=== PATIENT | male | born 1985 | race Caucasian/White ===

== ENCOUNTER 2022-02-22 15:44 | Outpatient (REF) | payer BC, SELFPAY | END 2022-02-22 15:45 | disposition home or self-care (01) | LOC: LBN 15:44 | PROVIDERS: Visit Provider Nurse Practitioner Family | DX: J02.9 Acute pharyngitis, unspecified (principal); L98.9 Disorder of the skin and subcutaneous tissue, unspecified | CPT/HCPCS: 87077; 87070; 87186; 87205 ==

== ENCOUNTER 2022-03-08 16:08 | Outpatient (REF) | payer BC, SELFPAY | END 2022-03-08 16:09 | disposition home or self-care (01) | LOC: LBN 16:08 | PROVIDERS: Visit Provider Nurse Practitioner Family | DX: J02.9 Acute pharyngitis, unspecified (principal) | CPT/HCPCS: 87070 ==

== ENCOUNTER 2023-03-21 12:44 | Emergency (ER) | payer MEDICAID, SELFPAY ==
[2023-03-21 12:46] VITALS: BP 150/89; PULSE 99; RESP 22; TEMP 37.2; O2SAT 100
--- NOTE | 2023-03-21 13:10 | W.ED.GENAD ---
Discharge Plan Disposition Patient Disposition: Home Condition: Good Discharge Details Clinical Impression: Withdrawal syndrome Primary Care Provider: Unknown,Unknown ED Provider: Maryjo Dooley Home Meds and New Rx's Prescriptions: New naloxone [Narcan] 4 mg/actuation spray,non-aerosol 4 mg intranasal Q2M PRNQty: 2 0RF Rx Instructions: spray 1 dose into ONE nostril; alternate nostrils w each dose until help arrives No Action mupirocin 2 % ointment 1 applic topical BID Qty: 22 0RF Rx Instructions: apply 2x daily to wounds x 10 day and as needed penicillin V potassium 500 mg tablet 500 mg PO BID Qty: 20 0RF Rx Instructions: Take 1 tab every 12 hours x 10 days Discharge Instructions Instructions: Buprenorphine/Naloxone (Into the mouth), Narcotic Withdrawal (ED), Narcotic Use Disorder (ED) Additional Instructions: 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 A prescription for Narcan has been sent to your pharmacy- make sure the people around you know how to use it since you will not be able to give it to yourself if you need it. A referral has been sent to [facility]- call them first thing in the morning tomorrow. Return to the emergency department for new or worsening symptoms. Medical Decision Making 37yo M with opiate use disorder presenting requesting medication assisted treatment. History from patient and mother at bedside. Mother has been trying to find a program for him, [employer], etc, but can't get in for at least two weeks. Patient reports he usses street fentanyl, last yesterday morning. Two weeks ago was prescribed short course of suboxone however did not start it; after he picked up the prescription he left it in his car which was then impounded. Neither he nor his mother at bedside have been able to gain access to the vehicle. Aside from this he has never been on MAT before. Feels like he is withdrawing. Screening labs and urine ordered. Initial COWS 11. Discussed suboxone imitation with patient and mother at bedside including importance of accuracy of last usage given risks of precipitating worsening withdrawal. He again affirms last usage >24 hours ago. Given 2mg suboxone film. On reassessment COWS increased, patient more uncomfortable, irritable. Would not do further treatment here today. He did speak with a high school assistant football coach with plan for daily check ins, [facility] referral sent, and information sent to [facility]. Narcan prescribed and usage reviewed with mother and patient; he states he does already have some at home as well Discharge instructions verbally reviewed with patient and mother at bedside; he declined to wait for printed instructions. Discharged home, discharge instructions and return precautions were reviewed with patient who verbalized understanding. All questions were answered and he is in agreement with the plan. Lab Data Lab results reviewed: Yes I reviewed the patient's lab results. Labs: Laboratory Tests Range/Units 03/21/23 13:14 WBC (4.4-10.8) 10^3/uL 8.63 RBC (4.36-5.78) 10^6/uL 5.57 Hgb (13.5-17.5) g/dL 16.2 Hct (40.0-50.0) % 46.2 MCV (80-95) fL 83 MCH (27.0-33.0) pg 29.1 MCHC (32.0-36.0) % 35.1 RDW (11.8-14.1) % 11.9 Plt Count (130-400) 10^3/uL 282 MPV (8.0-11.0) fL 9.0 Immature Gran % 0.5 Neutrophils % 82.8 Lymphocytes % 11.9 Monocytes % 4.3 Eosinophils % 0.2 Basophils % 0.3 Nucleated RBC % (0.0-0.3) % 0.0 Absolute Neutrophils (1.2-6.7) 10^3/uL 7.14 H Absolute Lymphocytes (1.2-3.4) 10^3/uL 1.03 L Absolute Monocytes (0.1-0.8) 10^3/uL 0.37 Absolute Eosinophils (0.0-0.7) 10^3/uL 0.02 Absolute Basophils (0.0-0.2) 10^3/uL 0.03 Sodium (136-145) mmol/L 139 Potassium (3.5-5.1) mmol/L 3.6 Chloride (98-107) mmol/L 102 Carbon Dioxide (21.0-32.0) mmol/L 25.8 Anion Gap (3-11) mmol/L 11.2 H BUN (7-18) mg/dL 12 Creatinine (0.70-1.30) mg/dL 0.8 Est GFR (CKD-EPI 2020) (mL/min/1.73m2) 118.36 Glucose (74-106) mg/dL 113 H Calcium (8.5-10.1) mg/dL 9.9 Total Bilirubin (0.2-1.0) mg/dL 0.5 AST (15-37) U/L 13 L ALT (16-63) U/L 18 Alkaline Phosphatase (46-116) U/L 105 Total Protein (6.4-8.2) g/dL 7.8 Albumin (3.4-5.0) g/dL 4.2 HPI General Mode of arrival: ambulatory. Date/Time Provider Initiated Documentation: 03/21/23 12:55. Limitations to Documentation: no limitations. Information obtained by: patient and family. HPI Narrative: 37yo M with opiate use disorder presenting requesting medication assisted treatment. Uses street fentanyl, last yesterday. Two weeks ago was prescribed short course of suboxone however did not start it; after he picked up the prescription he left it in his car which was then impounded. Neither he nor his mother at bedside have been able to gain access to the vehicle. Aside from this he has never been on MAT before. Currently feels like he is withdrawing, nauseated, tremulous, headache, generally unwell. Has been trying to get into a program however earliest he has been able to identify is two weeks from now. He is otherwise in his usual state of health. Related Data Home Medications Medication Instructions Recorded Confirmed penicillin V potassium 500 mg 500 mg PO BID #20 tabs 02/22/22 02/22/22 tablet mupirocin 2 % topical ointment 1 applic topical BID #22 grams 03/08/22 03/08/22 naloxone 4 mg/actuation nasal 4 mg intranasal Q2M PRN #2 ea 03/21/23 spray (Narcan) Previous Rx's Medication Instructions Recorded penicillin V potassium 500 mg 500 mg PO BID #20 tabs 02/22/22 tablet mupirocin 2 % topical ointment 1 applic topical BID #22 grams 03/08/22 naloxone 4 mg/actuation nasal 4 mg intranasal Q2M PRN #2 ea 03/21/23 spray (Narcan) Allergies Allergy/AdvReac Type Severity Reaction Status Date / Time No Known Allergies Allergy Unverified 03/08/22 13:51 General Stated Complaint: DrugWithdr/MAT GLADIS: 3 Review of Systems Narrative: see HPI PFSH All Active Problems (Updated 03/21/23 @ 14:04 by Maryjo Dooley MD) Withdrawal syndrome (Acute) Social History Smoking risk assessment performed?: No Alcohol Intake: current Alcohol Intake frequency: holidays/special occasions only Alcohol type: beer Drug use: Daily Substance use type: other Details: smokes 1 bundle fentanyl daily- last use on saturday Do you feel safe in your relationship?: Yes Exam Narrative Exam Narrative: General: Alert Head: Normocephalic, atraumatic Neck: Trachea midline, ?Neck supple. Cardiac: ?RRR, no murmurs appreciated Resp: No respiratory distress. CTAB. Abd: ?Soft, non-distended, nontender : ?No suprapubic tenderness. Extremities: ?No deformities.? No peripheral edema. Neurologic: GCS 15. ? Moves all extremities freely against gravity Course Vital Signs Vital signs: Vital Signs Temperature 37.2 C 03/21/23 12:46 Pulse 99 H 03/21/23 12:46 Respiratory Rate 22 03/21/23 12:46 Blood Pressure 150/89 H 03/21/23 12:46 Pulse Oximetry 100 03/21/23 12:46 Temperature 37.2 C 03/21/23 12:46 Temperature Source Temporal Artery Scan 03/21/23 12:46 Pulse 99 H 03/21/23 12:46 Respiratory Rate 22 03/21/23 12:46 Blood Pressure 150/89 H 03/21/23 12:46 Blood Pressure Position Sitting 03/21/23 12:46 Pulse Oximetry 100 03/21/23 12:46 Oxygen Delivery Method Room Air 03/21/23 12:46 Oxygen Flow Rate 0 03/21/23 12:46 Pain Level 8 03/21/23 12:46
[2023-03-21 13:12] VITALS: BP 132/79; PULSE 86; RESP 18; O2SAT 100
[2023-03-21 13:22] LABS: Abs Immature Grans 0.04 10^3/uL (0.0-0.06); Absolute Basophil Count 0.03 10^3/uL (0.0-0.2); Absolute Eosinophil Count 0.02 10^3/uL (0.0-0.7); Absolute Lymphocyte Count 1.03 10^3/uL (1.2-3.4); Absolute Monocyte Count 0.37 10^3/uL (0.1-0.8); Absolute Neutrophil Count 7.14 10^3/uL (1.2-6.7); Basophils % 0.3; Eosinophils % 0.2; HCT 46.2 % (40.0-50.0); HGB 16.2 g/dL (13.5-17.5); Immature Grans % 0.5; Lymphocytes % 11.9; MCH 29.1 pg (27.0-33.0); MCHC 35.1 % (32.0-36.0); MCV 83 fL (80-95); Monocytes % 4.3; Neutrophils % 82.8; Platelet Count 282 10^3/uL (130-400); RBC 5.57 10^6/uL (4.36-5.78); RDW 11.9 % (11.8-14.1); RDW-SD 35.8 fL; WBC 8.63 10^3/uL (4.4-10.8)
[2023-03-21 13:37] LABS: ALT 18 U/L (16-63); AST 13 U/L (15-37); Albumin 4.2 g/dL (3.4-5.0); Alkaline Phosphatase 105 U/L (46-116); Anion Gap 11.2 mmol/L (3-11); BUN 12 mg/dL (7-18); Bilirubin, Total 0.5 mg/dL (0.2-1.0); CO2 25.8 mmol/L (21.0-32.0); CREATININE 0.8 mg/dL (0.70-1.30); Calcium 9.9 mg/dL (8.5-10.1); Chloride 102 mmol/L (98-107); Estimated GFR 118.36 (mL/min/1.73m2); Glucose 113 mg/dL (74-106); Potassium 3.6 mmol/L (3.5-5.1); Sodium 139 mmol/L (136-145); Total Protein 7.8 g/dL (6.4-8.2)
[2023-03-21] MEDS: Buprenorphine/Naloxone 2 mg/0.5 mg FILM 1 EACH SL (13:37)
[2023-03-21 14:27] VITALS: BP 144/90; PULSE 98; RESP 18; O2SAT 97
[2023-03-21 14:52] LABS: *AMPHETAMINES SCREEN URINE Negative (Negative); *BARBITURATES SCREEN URINE Negative (Negative); *BENZODIAZEPINES SCREEN URINE Negative (Negative); Cannabinoids THC Positive (Negative); Cocaine Screen,Urine Positive (Negative); METHADONE URINE SCREEN Negative (Negative); OPIATES URINE SCREEN Negative (Negative)
[2023-03-21 14:54] LABS: Tricyclic Antidepressants Negative (Negative)
--- NOTE | 2023-03-21 15:18 | NUR.NOTE ---
Referral faxed to [facility] with signed transition of care form, facesheet and provider note. Nursing Note:
[2023-03-21 22:55] LABS: Hepatitis C Ab w Rflx HCV PCR Negative (Negative)
[2023-03-21 22:57] LABS: Hep B Core Antibody Negative (Negative)
--- NOTE | 2023-03-25 13:05 | NUR.NOTE ---
Mother came in today and picked up cap. Nursing Note:
== END 2023-03-21 14:45 | disposition home or self-care (01) ==
PROVIDERS: Emergency Provider Student in an Organized Health Care Education/Training Program
DX: F11.13 Opioid abuse with withdrawal (principal)
CPT/HCPCS: 80053; 80307; 86704; 86803; 99283; 85025; 99282

== ENCOUNTER 2023-05-14 18:29 | Outpatient (REF) | payer MEDICAID, SELFPAY | END 2023-05-14 18:30 | disposition home or self-care (01) | LOC: LBN 18:29 | PROVIDERS: Visit Provider Physician Assistant | DX: L98.8 Other specified disorders of the skin and subcutaneous tissue (principal) | CPT/HCPCS: 87077; 87070; 87186; 87205 ==

== ENCOUNTER 2024-02-25 17:26 | Emergency (ER) | payer MEDICAID, SELFPAY ==
[2024-02-25 17:33] VITALS: BP 136/86; PULSE 92; RESP 15; TEMP 36.5; O2SAT 95
--- NOTE | 2024-02-25 17:45 | DI.RAD_ITS ---
Exam(s) XR HAND RT COMPLETE EXAM: XR HAND RT COMPLETE CLINICAL HISTORY: Thumb swelling, infection. TECHNIQUE: 2D digital imaging was performed of the right hand. Three images were obtained. AP, late ral and oblique views were obtained. COMPARISON: There are no priors for comparison. FINDINGS: BONES: No acute fracture is present. No bony destructive lesion is seen. JOINTS: No dislocation present. SOFT TISSUE: There is soft tissue swelling of the thumb. No soft tissue gas is seen. IMPRESSION: Soft tissue swelling of the thumb. No soft tissue gas is present. No radiographic evidence to sugge st osteomyelitis is seen. DATA REPOSITORY: RADIATION DOSE DELIVERED:
--- NOTE | 2024-02-25 17:55 | W.ED.GENAD ---
Discharge Plan Disposition Patient Disposition: Home Condition: Stable Discharge Details Clinical Impression: Felon of finger of right hand Primary Care Provider: Unknown,Unknown ED Provider: Cnadice Meneses Home Meds and New Rx's Prescriptions: New sulfamethoxazole-trimethoprim [Bactrim DS] 800-160 mg tablet 1 tab PO BID 10 Days Qty: 20 0RF cephalexin 500 mg tablet 500 mg PO BID 10 Days Qty: 20 0RF No Action naloxone [Narcan] 4 mg/actuation spray,non-aerosol 4 mg intranasal Q2M PRNQty: 2 0RF Rx Instructions: spray 1 dose into ONE nostril; alternate nostrils w each dose until help arrives Discharge Instructions Instructions: Cellulitis (Skin Infection), Adult ED Additional Instructions: Please take both antibiotics twice daily for the next 10 days. Please take them with yogurt or a probiotic. You have something called a felon of your thumb. This is an infection of the skin. Please have it rechecked either here or your primary care doctor in 3 days or return sooner if it gets any worse, if you have any more red streaks up your arm, fever or chills or concerns. Please take Tylenol or Ibuprofen with food every 4-6 hours as needed for pain and swelling. Wash with soap and water daily, keep clean and dry. You may elevate it above the level of your heart when sitting or lying down. Keep it covered when you are out and about. It should start improving after approximately 3 days of the antibiotics. Follow up with primary care provider in 3-5 days. Return to ED sooner if any worsening or concerns. Referrals: [facility] [Provider Group] [facility] [Provider Group] [facility] General Mode of arrival: ambulatory. Date/Time Provider Initiated Documentation: 02/25/24 17:38. Limitations to Documentation: no limitations. Information obtained by: patient, RN notes reviewed and old records reviewed. HPI Narrative: 38-year-old male presents to the ER with a chief complaint else red swollen right thumb which she reports has been getting worse over the last few days. Patient has severely swollen thumb he has unable to bend or extend his joints, he does have some yellow discharge noted to the medial aspect distally. He also has some erythema kind extending up into his wrist on the medial side, he denies any fever or chills. Denies any injury that he knows of. He does endorse fentanyl use. Related Data Home Medications ?Medication ?Instructions ?Recorded ?Confirmed naloxone 4 mg/actuation nasal 4 mg intranasal Q2M PRN #2 ea 03/21/23 02/25/24 spray (Narcan) cephalexin 500 mg tablet 500 mg PO BID 10 days #20 tabs 02/25/24 sulfamethoxazole 800 1 tab PO BID 10 days #20 tabs 02/25/24 mg-trimethoprim 160 mg tablet (Bactrim DS) Previous Rx's ?Medication ?Instructions ?Recorded naloxone 4 mg/actuation nasal 4 mg intranasal Q2M PRN #2 ea 03/21/23 spray (Narcan) cephalexin 500 mg tablet 500 mg PO BID 10 days #20 tabs 02/25/24 sulfamethoxazole 800 1 tab PO BID 10 days #20 tabs 02/25/24 mg-trimethoprim 160 mg tablet (Bactrim DS) Allergies Allergy/AdvReac Type Severity Reaction Status Date / Time No Known Allergies Allergy Unverified 02/25/24 17:38 General Stated Complaint: RashLesion GLADIS: 4 Exam Extrem Right upper extremity: hand Details: tenderness, abnormal ROM of finger Details: unable to flex or extend, warmth, swelling Location: of the thumb Location: involving the entire digit and ecchymosis Course Vital Signs Vital signs: Vital Signs Temperature 36.5 C 02/25/24 17:33 Pulse 92 H 02/25/24 17:33 Respiratory Rate 15 02/25/24 17:33 Blood Pressure 136/86 02/25/24 17:33 Pulse Oximetry 95 02/25/24 17:33 Temperature 36.5 C 02/25/24 17:33 Pulse 92 H 02/25/24 17:33 Respiratory Rate 15 02/25/24 17:33 Respiratory Effort Normal 02/25/24 17:36 Blood Pressure 136/86 02/25/24 17:33 Blood Pressure Position Sitting 02/25/24 17:33 Pulse Oximetry 95 02/25/24 17:33 Oxygen Delivery Method Room Air 02/25/24 17:33 Oxygen Flow Rate 0 02/25/24 17:33 Procedures Abscess I/D Site: Hand (R thumb) Side (if applicable): Right Sedation/analgesia: None Local Anesthetic: Other Anesthetic (Pain ease spray) Technique: Incised with #11 Blade Amount of fluid expressed (mL): 0 Irrigation: No Packing used?: None Complications: Pain Medical Decision Making 38-year-old male presents to the ER with a chief complaint else red swollen right thumb which she reports has been getting worse over the last few days. Patient has severely swollen thumb he has unable to bend or extend his joints, he does have some yellow discharge noted to the medial aspect distally. He also has some erythema kind extending up into his wrist on the medial side, he denies any fever or chills. Denies any injury that he knows of. He does endorse fentanyl use. X-ray ordered to rule out subcutaneous emphysema, cephalexin and Bactrim, wound care will I&D the purulent area pending the x-rays. X-rays show no subcu gas, no evidence of osteomyelitis. No foreign body. Attempted I&D, no purulent drainage expressed. Patient given ice pack. Will prescribe Bactrim and cephalexin and instruct on home care. Will encourage recheck in approximately 3 days you either here or with PCP. This text was generated using [employer] dictation system, please disregard any oddities of phrase or misspellings. Quality:SDOH Health Related Social Needs: No Data to Display PFSH All Active Problems (Updated 02/25/24 @ 18:26 by Candice Meneses NP) Felon of finger of right hand (Acute) MRSA infection (Acute) Social History Smoking risk assessment performed?: No Alcohol Intake: current Alcohol Intake frequency: holidays/special occasions only Alcohol type: beer Drug use: Daily Substance use type: other Details: smokes 1 bundle fentanyl daily- last use on saturday Do you feel safe in your relationship?: Yes
[2024-02-25] MEDS: Cephalexin 500 MG CAP PO (18:13)
[2024-02-25] MEDS: Sulfameth/Trimeth DS TAB 1 TAB PO (18:13)
[2024-02-25] MEDS: Sulfameth/Trimeth DS, 2 TABS/BTL 1 TAB PO (18:33)
[2024-02-25] MEDS: Cephalexin 500 MG CAP, 2 CAPS/BTL PO (18:33)
[2024-02-25 18:37] VITALS: BP 136/86; PULSE 92; RESP 15; TEMP 36.5; O2SAT 95
== END 2024-02-25 18:37 | disposition home or self-care (01) ==
PROVIDERS: Emergency Provider Registered Nurse Emergency
DX: L03.011 Cellulitis of right finger (principal)
CPT/HCPCS: 10060; 99283; 73130

== ENCOUNTER 2024-04-25 13:23 | Outpatient (REF) | payer MEDICAID, SELFPAY | END 2024-04-25 13:24 | disposition home or self-care (01) | LOC: LBN 13:23 | PROVIDERS: Visit Provider Nurse Practitioner Family | DX: A49.02 Methicillin resistant Staphylococcus aureus infection, unspecified site (principal) | CPT/HCPCS: 87077; 87070; 87186; 87205 ==